=== PATIENT | female | born 1990 | race Two or more races ===

== ENCOUNTER 2020-06-28 14:44 | Emergency (ER) | payer BC, MEDICAID ==
[~2020-06-28] VITALS: Ht 165.1 cm; Wt 70.0 kg
[~2020-06-28 14:44] MED LIST: ESCI20TA87 PO; LITH300C3 PO; RISP1TAB27 PO
[2020-06-28] MEDS ORDERED: HALOPERIDOL 5 MG TABLET PO ONE (15:00)
[2020-06-28] MEDS ORDERED: LORazepam 2 MG TABLET PO ONE (15:00)
[2020-06-28] MEDS ORDERED: DiphenhydrAMINE HCL 50 MG CAPSULE PO ONE (15:00)
[2020-06-28 15:31] LABS: BASOPHILS % (AUTO) 0.9 % (0.0-2.0); EOSINOPHILS % (AUTO) 0.4 % (1.0-6.0); HEMATOCRIT 35.9 % (36-46); HEMOGLOBIN 12.2 g/dL (12.0-16.0); LYMPHOCYTES # (AUTO) 1.6 K/uL (1.0-4.8); LYMPHOCYTES % (AUTO) 15.9 % (22.0-44.0); MEAN CORPUSCULAR HEMOGLOBIN 30.6 pg (26.0-34.0); MEAN CORPUSCULAR VOLUME 90 fL (80-100); MONOCYTES # (AUTO) 0.7 K/uL (0.1-1.0); MONOCYTES % (AUTO) 7.5 % (2.0-9.0); NEUTROPHILS # (AUTO) 7.5 K/uL (1.8-7.7); NEUTROPHILS % (AUTO) 75.3 % (40.0-70.0); PLATELET COUNT (AUTO) 273 K/uL (150-450); RED BLOOD CELL COUNT(AUTO) 3.99 MIL/uL (4.00-5.20); RED CELL DISTRIBUTION WIDTH 13.9 % (11.5-14.5)
[2020-06-28 15:44] LABS: ANION GAP 8 mmol/L (8-16); CALCIUM, TOTAL 8.8 mg/dL (8.8-10.5); CARBON DIOXIDE 24 mmol/L (22-29); CHLORIDE 102 mmol/L (98-107); CREATININE 1.38 mg/dL (0.60-1.30); GLOMERULAR FILTR. RATE CALC 45 mL/min (>60); GLUCOSE,RANDOM 84 mg/dL (70-110); POTASSIUM 3.5 mmol/L (3.5-5.1); SODIUM SERUM 134 mmol/L (136-145); UREA NITROGEN, BLOOD 18 mg/dL (7-18)
[2020-06-28 15:49] LABS: ALANINE AMINOTRANSFERASE 25 U/L (12-78); ALBUMIN 4.1 g/dL (3.4-5.0); ALKALINE PHOSPHATASE 54 U/L (46-116); ASPARTATE AMINOTRANSFERASE 22 U/L (15-37); BILIRUBIN,TOTAL 0.5 mg/dL (0.1-1.0); TOTAL PROTEIN, SERUM 8.2 g/dL (6.4-8.2)
[2020-06-28 15:59] LABS: LITHIUM < 0.20 mmol/L (0.60-1.20)
[2020-06-28 18:00] VITALS: BP 127/73
== END 2020-06-28 19:00 | disposition home or self-care (01) ==
LOC: EMS 14:45
DX: F31.9 Bipolar disorder, unspecified (principal); F41.9 Anxiety disorder, unspecified
CPT/HCPCS: 36415; 80053; 80178; 85025; 99285; G0480